=== PATIENT | female | born 1935 | race Caucasian/White ===

== ENCOUNTER 2017-01-15 09:35 | Emergency (ER) | payer MEDICARE ==
[~2017-01-15] VITALS: Ht 152.4 cm; Wt 77.1 kg
[2017-01-15] MEDS ORDERED: DIATR MEGLU/DIATRIZOATE SODIUM 120 ML BOTTLE PO ONE (10:15)
--- NOTE | 2017-01-15 10:24 | NUR ---
DR MARTIN REPLACED GT 20 GAUGE, ASPIRATION AND FLUSE WNL.
[2017-01-15] MEDS ORDERED: DIATR MEGLU/DIATRIZOATE SODIUM 120 ML BOTTLE GT ONE (10:45)
[2017-01-15] MEDS ORDERED: DIATR MEGLU/DIATRIZOATE SODIUM 120 ML BOTTLE ONE (10:45)
[2017-01-15] MEDS ORDERED: IPRA3AMP IH (11:59)
[2017-01-15] MEDS ORDERED: POLY17PO4 GT (11:59)
[2017-01-15] MEDS ORDERED: CLON0.5T GT (11:59)
[2017-01-15] MEDS ORDERED: BLOO-360 IN (11:59)
[2017-01-15] MEDS ORDERED: HYDR-4075 GT (11:59)
[2017-01-15] MEDS ORDERED: ACID1TAB4 GT (11:59)
[2017-01-15] MEDS ORDERED: FOLI1TAB16 GT (11:59)
[2017-01-15] MEDS ORDERED: FOLI0.8T23 GT (11:59)
[2017-01-15] MEDS ORDERED: PROT946L GT (11:59)
[2017-01-15] MEDS ORDERED: ACET650S26 GT (11:59)
[2017-01-15] MEDS ORDERED: OLAN2.5T3 GT (11:59)
[2017-01-15] MEDS ORDERED: ONDA4TAB5 GT (11:59)
[2017-01-15] MEDS ORDERED: DIPH25TA62 GT (11:59)
[2017-01-15] MEDS ORDERED: FAMO-132 GT (11:59)
[2017-01-15] MEDS ORDERED: LANO3.5O3 OP (11:59)
[2017-01-15] MEDS ORDERED: FLUO-120 GT (11:59)
[2017-01-15] MEDS ORDERED: LORA0.5T48 GT (11:59)
--- NOTE | 2017-01-15 12:03 | NUR ---
REPORT GIVEN TO NIGHT TIME NANNY AND RT. PT WILL BE GOING BACK AT FACILITY. ALL BELONGING SENT W/ PT. PT LEFT ER IN STABLE CONDITION, VERBAL AND WRITTEN AFTER CARE INSTRUCTIONS GIVEN.
[2017-01-15 12:12] VITALS: BP 158/66
== END 2017-01-15 12:13 | disposition home or self-care (01) ==
LOC: ER 09:35
DX: Z43.1 Encounter for attention to gastrostomy (principal); I12.0 Hypertensive chronic kidney disease with stage 5 chronic kidney disease or end stage renal disease; J44.9 Chronic obstructive pulmonary disease, unspecified; E11.22 Type 2 diabetes mellitus with diabetic chronic kidney disease; K21.9 Gastro-esophageal reflux disease without esophagitis; N18.6 End stage renal disease; Z99.2 Dependence on renal dialysis
CPT/HCPCS: 74000; A4663; Q9963